=== PATIENT | female | born 1990 ===

== ENCOUNTER → 2018-12-04 19:59 | Outpatient (REF) | payer OTHER, SELFPAY ==
[2018-12-04 20:42] LABS: Add Manual Diff / Slide Review NO; Basophils Absolute Auto 0 /uL (0-100); Basophils Percent Auto 0.8 % (0-2); Eosinophils Absolute Auto 0 /uL (0-450); Eosinophils Percent Auto 0.6 % (2-4); Hematocrit 41.5 % (36-46); Lymphocytes Absolute Auto 1600 /uL (1100-4500); Lymphocytes Percent Auto 36.6 % (25-40); Mean Corpuscular HGB Conc 33.8 % (30-36); Mean Corpuscular Hemoglobin 31.7 PG (26-34); Mean Corpuscular Volume 93.9 fL (80-100); Monocytes Absolute Auto 300 /uL (0-900); Monocytes Percent Auto 7.1 % (3-14); Neutrophils Absolute Auto 2400 /uL (1500-7000); Neutrophils Percent Auto 54.9 % (50-75); Platelet Count 199 X10^3/uL (150-400); Red Blood Cell Count 4.41 X10^6/uL (4.0-5.2); Red Cell Distribution Width 13.1 % (11.6-14.8); White Blood Cell Count 4.4 X10^3/uL (4.5-11.0)
[2018-12-04 21:28] LABS: Thyroid Stimulating Hormone 1.32 uIU/mL (0.47-4.68)
== END ==
LOC: LAB 19:59
PROVIDERS: Visit Provider Physician Assistant Medical
DX: R53.83 Other fatigue (principal)
CPT/HCPCS: 36415; 84443; 85025